=== PATIENT | male | born 1995 | race Caucasian/White ===

== ENCOUNTER 2016-08-23 13:48 | Emergency (ER) | payer OTHER ==
[~2016-08-23] VITALS: Ht 177.8 cm; Wt 65.0 kg
[2016-08-23] MEDS ORDERED: BACITRACIN 0.9 GM PACKET OINTMENT TP ONE (14:45)
[2016-08-23] MEDS ORDERED: IBUPROFEN 800 MG TABLET PO ONE (15:45)
[2016-08-23 16:18] VITALS: BP 121/73
== END 2016-08-23 16:33 | disposition home or self-care (01) ==
LOC: EMS 13:51
DX: S60.051A Contusion of right little finger without damage to nail, initial encounter (principal); X58.XXXA Exposure to other specified factors, initial encounter; Y93.89 Activity, other specified; Y99.8 Other external cause status; Y92.89 Other specified places as the place of occurrence of the external cause
CPT/HCPCS: 99284

== ENCOUNTER 2016-11-09 02:12 | Emergency (ER) | payer OTHER ==
[~2016-11-09] VITALS: Ht 177.8 cm; Wt 67.0 kg
[2016-11-09 04:54] VITALS: BP 121/66
[2016-11-09] MEDS ORDERED: IBUPROFEN 600 MG TABLET PO ONE (05:00)
== END 2016-11-09 05:03 | disposition home or self-care (01) ==
LOC: EMS 02:12
DX: S23.429A Unspecified sprain of sternum, initial encounter (principal); X58.XXXA Exposure to other specified factors, initial encounter; Y93.89 Activity, other specified; Y92.89 Other specified places as the place of occurrence of the external cause; Y99.8 Other external cause status
CPT/HCPCS: 99283